=== PATIENT | female | born 1995 | race African-American/Black ===

== ENCOUNTER 2019-06-10 20:14 | Emergency (ER) | payer BC ==
[~2019-06-10] VITALS: Ht 157.5 cm; Wt 59.0 kg
[2019-06-10] MEDS ORDERED: NOHOMEMEDICATIONS (20:28)
[2019-06-10] MEDS ORDERED: TESSALON PERLE100 MG PO (21:14)
[2019-06-10] MEDS ORDERED: PREDNISONE 20 M20 MG PO (21:39)
[2019-06-10 21:59] VITALS: BP 125/75
== END 2019-06-10 22:01 | disposition home or self-care (01) ==
LOC: ER 20:14
DX: J40 Bronchitis, not specified as acute or chronic (principal); R07.89 Other chest pain

== ENCOUNTER 2020-06-06 19:23 | Emergency (ER) | payer BC ==
[~2020-06-06] VITALS: Ht 160 cm; Wt 68.0 kg
[~2020-06-06 19:23] MED LIST: NOHOMEMEDICATIONS; PREDNISONE 20 M20 MG PO; TESSALON PERLE100 MG PO
[2020-06-06] MEDS ORDERED: NYQUIL PO (19:42)
[2020-06-06] MEDS ORDERED: PREDNISONE 20 M20 MG PO (21:33)
[2020-06-06] MEDS ORDERED: PROMETHAZINE-C473 ML PO (21:33)
[2020-06-06 21:43] VITALS: BP 117/70
== END 2020-06-06 21:44 | disposition home or self-care (01) ==
LOC: ER 19:23
DX: R05 Cough (principal); M79.10 Myalgia, unspecified site; R53.83 Other fatigue; Z20.828 Contact with and (suspected) exposure to other viral communicable diseases; Z79.899 Other long term (current) drug therapy

== ENCOUNTER 2020-10-06 13:20 | Emergency (ER) | payer BC ==
[~2020-10-06] VITALS: Ht 160 cm; Wt 70.3 kg
[~2020-10-06 13:20] MED LIST changes: +NYQUIL PO; +PROMETHAZINE-C473 ML PO
[2020-10-06 13:24] VITALS: BP 116/80
[2020-10-06] MEDS ORDERED: AMOXICILLIN500 M1 PO (13:31)
== END 2020-10-06 14:10 | disposition home or self-care (01) ==
LOC: ER 13:20
DX: J02.9 Acute pharyngitis, unspecified (principal); Z79.899 Other long term (current) drug therapy

== ENCOUNTER 2021-05-16 17:48 | Emergency (ER) | payer BC ==
[~2021-05-16] VITALS: Ht 160 cm; Wt 67.6 kg
[~2021-05-16 17:48] MED LIST changes: +AMOXICILLIN500 M1 PO
[2021-05-16] MEDS ORDERED: PREDNISONE 20 M20 MG PO (18:42)
[2021-05-16] MEDS ORDERED: MOBIC7.5 MG PO (18:42)
[2021-05-16 19:04] VITALS: BP 102/67
--- NOTE | 2021-05-17 07:15 | EKG ---
[address] [address] ELECTROCARDIOGRAM REPORT Name: NICOLE GRANT [id number] Admission: 05/16/21 Attend Phys: Discharge: 05/16/21 Date of : [birth year] Report #: [id number] [facility] ED Test Date: 2021-05-16 Test Time: 17:56:37 Pat Name: NICOLE GRANT Department: Room: Gender: Male Impersonator: ALMITA : 1995 Requested By: Mike Chiang Order Number: [id number] MD: Demarcus Sims Measurements Intervals [place] Rate: 77 P: 76 [place]: 139 QRS: 76 QRSD: 89 T: 48 QT: 376 QTc: 426 Interpretive Statements Sinus rhythm No previous ECG available for comparison Electronically Signed On 05-17-2021 7:15:16 CDT by Demarcus Sims [email or web address] <ELECTRONICALLY SIGNED> By: Demarcus Sims MD, [facility] 05/17/21 0715 1756 1756 Demarcus Sims MD, FACC /EPI
== END 2021-05-16 19:04 | disposition home or self-care (01) ==
LOC: ER 17:48
DX: M75.52 Bursitis of left shoulder (principal); M75.51 Bursitis of right shoulder; M54.89 Other dorsalgia; F17.210 Nicotine dependence, cigarettes, uncomplicated; Z91.09 Other allergy status, other than to drugs and biological substances; Z79.899 Other long term (current) drug therapy

== ENCOUNTER → 2021-08-31 | Emergency (ER) | payer BC ==
[~2021-08-31] MED LIST changes: +MOBIC7.5 MG PO
[2021-08-31 20:00] VITALS: BP 115/69
== END ==
LOC: ER 19:50
DX: R11.2 Nausea with vomiting, unspecified (principal); Z53.21 Procedure and treatment not carried out due to patient leaving prior to being seen by health care provider